=== PATIENT | female | born 1985 | race Caucasian/White ===

== ENCOUNTER 2017-11-02 05:45 | Inpatient (IN) ==
[2017-11-02] MEDS ORDERED: Ringers Solution, Lactated 1,000 ML ONE (06:32)
[2017-11-02] MEDS ORDERED: FLUARIX QUAD 2017-18 36MOS UP/PF 0.5 ML SYRINGE IM ONE (07:00)
[2017-11-02] MEDS ORDERED: Metoclopramide 10 MG/2 ML VIAL IVP PRN (07:07)
[2017-11-02] MEDS ORDERED: Naloxone 0.4 MG/ML INJ IVP PRN (07:07)
[2017-11-02] MEDS ORDERED: Famotidine 20 MG/2 ML VIAL IVP PRN (07:07)
--- NOTE | 2017-11-02 07:14 | OB/GYN History & Physical ---
Date of Encounter: 11/02/17 Time of Encounter: 07:11 History of Present Illness HPI: Ms. Barrera is a 32 year old female Past Med Surg Social Fam HX - Past Medical History Medical history: no medical history Psychiatric history: no psych history - Past Surgical History Surgical History: other - Social History Smoking Status: Never smoker Smokeless Tobacco Status: No Alcohol use: none Drug use: none - Family History Mother Living Status: Still Living Hx Family Cardiac Disorders: Yes (HTN) Hx Family Medical Disorders: Yes (Tremors) Obstetrical History - Pregnancies : 3 Medications and Allergies Ondansetron [Zofran ODT] 4 mg SL Q6HR PRN #5 tab.rapdis 12/28/16 [Rx] Promethazine [Phenergan] 25 mg PO Q6HR PRN #14 tablet 12/28/16 [Rx] Tramadol HCl [Ultram] 50 mg PO QID PRN #14 tab 12/28/16 [Rx] 3 Allergy/AdvReac Type Severity Reaction Status Date / Time Sulfa (Sulfonamide AdvReac Rash Verified 04/03/16 07:48 Antibiotics) Results All other labs normal. - VTE Reasons for not Prescribing Prophylaxis: Treatment not Indicated - Low risk for VTE
--- NOTE | 2017-11-02 07:18 | OB/GYN History & Physical ---
Date of Encounter: 11/03/17 Time of Encounter: 07:15 Assessment and Plan (1) 39 weeks gestation of Current visit: Yes Status: Acute The patient was footling breech which has resolved today by bedside ultrasound and patient is requesting induction of labor (2) History of hemorrhage, currently in third trimester Current visit: Yes Status: Acute The patient is receiving a type and screen, bedside hemorrhage cannot will be in place at time of delivery. CBC pending (3) Hx of pre-eclampsia in prior , currently Current visit: Yes Status: Acute The patient has been normotensive during her visits. She has become hypertensive after admission during this visit. She will receive by mouth labetalol, baseline PIH labs with this visit. Further aggressive management if needed History of Present Illness Chief complaint: Schedule C/S for Breech HPI: Ms. Barrera is a 32 year old female presents for primary section, for double footling breech presentation now vertex by bedside US. History of hemorrhage, polyhydramnios in now resolved. also complicated by short interval, history of preeclampsia and measuring large for gestational age. The last growth ultrasound was on and showed a 6 lbs. 8 oz. fetus at the 73%. Labs: A+, Rubella and Varicella immune, GBS-, all other serologies negative. Past Med Surg Social Fam HX - Past Medical History Attestation: Yes The following information was validated with the patient. Source: patient, old records reviewed Medical history: hypertension, migraine, other Psychiatric history: no psych history - Past Surgical History Surgical History: herniorrhaphy, other - Social History Smoking Status: Never smoker Smokeless Tobacco Status: No Alcohol use: none Drug use: none - Family History Mother Living Status: Still Living Hx Family Cardiac Disorders: Yes (HTN) Hx Family Medical Disorders: Yes (Tremors) Obstetrical History - Pregnancies : 3 Para: 2 Livin Medications and Allergies Ondansetron [Zofran ODT] 4 mg SL Q6HR PRN #5 tab.rapdis 12/28/16 [Rx] Promethazine [Phenergan] 25 mg PO Q6HR PRN #14 tablet 12/28/16 [Rx] Tramadol HCl [Ultram] 50 mg PO QID PRN #14 tab 12/28/16 [Rx] 3 Allergy/AdvReac Type Severity Reaction Status Date / Time Sulfa (Sulfonamide AdvReac Rash Verified 04/03/16 07:48 Antibiotics) Review of System OB All systems PM: reviewed and no additional remarkable complaints except as stated - Constitutional Constitutional ROS IM: headache(s) (Pre-existing prior to ), weight gain - Cardiovascular Cardiovascular: palpitations (With Holter monitor showing sinus tachycardia at times) - Gastrointestinal Gastrointestinal: cramping - Muscloskeletal Musculoskeletal: back pain Musculoskeletal: bilateral: hip pain Exam - Vital Signs Vital signs: Afebrile, vital signs stable. Blood pressure 138/90 - Constitutional Constitutional: well developed, well nourished, no acute distress, average body habitus - HEENT HEENT: Normocephaly, Mucus Membranes Moist - Neck Neck exam: normal inspection, supple - Lungs Respiratory exam: CTAB - Cardiovascular Cardiovascular exam: RRR - Breasts Breast: bilateral: normal (gravid) - Abdomen Abdomen: Present: bowel sounds normal, gravid, non tender - Extremities Extremities exam: normal inspection, warm Deep Tendon Reflex Grade: 3+ Normal But Brisk - Vulva Vulva: bilateral: normal - Vagina Vagina: Present: normal moisture - Cervix Dilation: 3 Effacement: 70 Station: -2 - Anus/Rectum Anus/Rectum: Present: normal perianal skin Results Result Diagrams: 11/02/17 06:58 11/02/17 07:55 All other labs normal. - VTE Reasons for not Prescribing Prophylaxis: Treatment not Indicated - Low risk for VTE
[2017-11-02] MEDS ORDERED: Lidocaine -MPF 2% 5 ML VIAL ONE (07:23)
[2017-11-02] MEDS ORDERED: miSOPROStol 100 MCG TABLET PO PRN (07:35)
--- NOTE | 2017-11-02 07:51 | Anesthesia Evaluation PreOp ---
Date of Encounter: 11/02/17 Time of Encounter: 07:11 - Past History Planned Operation: presents for however ultrasound not breech no Cardiac History: Denies any Significant Hx Pulmonary History: Denies Any Significant HX DINING ROOM MANAGER History: Denies Any Significant HX Other Medical History: Other (previous pre-eclampsia, previous hemorrhages with both deliveries according to family, never recieved blood products.) Anesthesia History: No Prior Anesthetic Complications (previous attemped epidural was unsuccessful at diff facility.) : Yes (term) Alcohol Use: none Drug use: none Medications and Allergies Ondansetron [Zofran ODT] 4 mg SL Q6HR PRN #5 tab.rapdis 12/28/16 [Rx] Promethazine [Phenergan] 25 mg PO Q6HR PRN #14 tablet 12/28/16 [Rx] Tramadol HCl [Ultram] 50 mg PO QID PRN #14 tab 12/28/16 [Rx] 3 Allergy/AdvReac Type Severity Reaction Status Date / Time Sulfa (Sulfonamide AdvReac Rash Verified 04/03/16 07:48 Antibiotics) Anesthesia Exam - HEENT Pupil (Motor): Pupils equal Mallampati: III Teeth: Normal Oral Opening: Greater than 3 - DINING ROOM MANAGER LOC: Oriented DINING ROOM MANAGER Motor: Normal RUE, Normal LUE, Normal RLE, Normal LLE, Normal Face DINING ROOM MANAGER Sensory: Normal: RUE, LUE, RLE, LLE, Face - Cardiac Rhythm: Regular Murmur: None - Pulmonary Breath Sounds: bilateral Clear Respiratory Effort: Symmetrical Anesthesia Assess/Plan ASA Score: 2 (patient to have type and screen and larger bore IV placed.) Modified [place] Scale for Level of Consciousness: Anixous, agitated or restless (patient very anixous) Anesthetic Plan: General, Regional (patient unsure if desires epidural with this del,) Monitoring Plan: Standard Monitors
[2017-11-02 08:10] LABS: Basophils # 0.1 K/mcL (0.0-0.2); Basophils % 0.5 %; Eosinophils # 0.2 K/mcL (0.0-0.6); Eosinophils % 1.4 %; Hematocrit 40.7 % (35.3-44.9); Hemoglobin 13.4 g/dL (11.5-15.4); Immature Granulocytes % 1.4 % (0-4); Lymphocytes # 2.2 K/mcL (0.6-4.6); Lymphocytes % 18.7 %; Mean Corpuscular HGB Conc 32.9 g/dL (31.6-35.5); Mean Corpuscular Volume 81.9 fL (83.0-100.0); Mean Platelet Volume 9.9 fL (9.4-12.4); Monocytes # 1.1 K/mcL (0.0-1.3); Monocytes % 8.9 %; Platelet Count 355 K/mcL (140-400); Red Blood Count 4.97 M/mcL (3.82-4.97); Red Cell Distribution Width 15.7 % (11.5-14.5); Segmented Neutrophils % 69.1 %
[2017-11-02 08:12] LABS: Neutrophils # 8.2 K/mcL (1.6-8.9)
[2017-11-02] MEDS ORDERED: miSOPROStol 100 MCG TABLET PO STA (08:18)
--- NOTE | 2017-11-02 08:20 | OB Labor Progress Note ---
Date of Encounter: 11/02/17 Time of Encounter: 08:18 Labor Progress Note - Subjective Subjective: The patient reports feeling an occasional contraction but they are not stronger uncomfortable. She is reporting a headache and is requesting Tylenol. She denies any current vision or epigastric pain - Vital Signs Vital Signs: Afebrile, blood pressure 172/90 - Cervix Cervix: 3/70/-2, vertex - Heart Tones Heart Tones: 140s baseline, CAT 1 - [place]: Contractions 3-5 minutes after cervical manipulation and Murillo balloon placed - Interventions Interventions: 39 week IUP with spontaneous conversion from breech to vertex. History of preeclampsia and hemorrhage. Transient hypertension - Plan Plan: 60 mL Murillo balloon placed in the patient's consent. By mouth Cytotec 25 g. 100 mg of by mouth labetalol and PIH lab work pending. Induction of labor with anticipation of vaginal delivery
[2017-11-02] MEDS: Acetaminophen 325 MG TABLET PO PRN ×2 (08:26→16:11)
[2017-11-02 08:39] LABS: Alanine Aminotransferase 8 Units/L (0-55); Aspartate Amino Transferase 16 Units/L (5-34); BUN/Creatinine Ratio 12 (6-26); Blood Urea Nitrogen 8 mg/dL (7-20); Lactate Dehydrogenase 202 Units/L (159-327); eGFR For African Americans > 60 (> 60); eGFR For Non-African Americans > 60 (> 60)
--- NOTE | 2017-11-02 10:21 | OB Labor Progress Note ---
Date of Encounter: 11/02/17 Time of Encounter: 10:19 Labor Progress Note - Subjective Subjective: Patient in bed breathing through contractions. Patient waiting on anesthesia for epidural. - Heart Tones Heart Tones: 135 bpm moderate variability +15x15 accels no decels noted. CAt. 1 tracing - Notus Notus: 2-3 min apart - Interventions Interventions: Discussed POC - Plan Plan: Epidural for pain management Continue labor management.
[2017-11-02] MEDS: Ringers Solution, Lactated 1,000 ML IVC SCH ×2 (10:24→12:13)
[2017-11-02] MEDS ORDERED: Epidural Premix (fent/bupiv) 110 ML EP ONE ×2 (10:26→17:56)
[2017-11-02] MEDS ORDERED: EPHEDrine 50 MG/ML VIAL ONE (11:16)
--- NOTE | 2017-11-02 11:38 | Anesthesia Procedures ---
Date of Encounter: 11/02/17 Time of Encounter: 10:33 Procedures: Anesthesia - Epidural/Spinal Patient ID/Chart reviewed: Yes Patient examined: Yes OB Eval: Gestational age: term OB Eval: : 3 OB Eval: Hx Para: 2 OB Eval: Dilated at (cm): 5 OB Eval: Contractions: Non-stressed pattern Consent Obtained: Yes Supplemental Oxygen: None/Room Air Site Prep: Aseptic Technique, Sterile prep and drape, 0.5% Chlorhexidine/Alcohol Patient position: upright Local Anesthetic: Lidocaine 1% Amount of Local Anesthetic used: 2 Touhy Needle Gauge: 18 Touhy Needle Depth (cm): 6 Catheter Depth at Skin (cm): 10 Test Dose (1.5% Lido + Epi): Volume given (mls): 3 Test Dose Result: Negative Loading Dose: Other: 12ml from solution Loading Dose Administered: Thru Catheter Infusion Med: 0.125% Bupivacaine w/ 2 mcg/ml Fentanyl Infusion Rate (mls/hr): [address]: Tegaderm, Tape Interspace Used: L3-L4 Loss of Resistance (EDGARDO): Yes (saline) Blood: No CSF: No Paresthesia: No Procedure: vss though out procedure, FHR stable per RN's
[2017-11-02] MEDS ORDERED: miSOPROStol 100 MCG TABLET PO ONE (12:26)
--- NOTE | 2017-11-02 12:47 | OB Labor Progress Note ---
Date of Encounter: 11/02/17 Time of Encounter: 12:35 Labor Progress Note - Subjective Subjective: Patient is recently status post epidural with hypotension post placement. She has received ephedrine for treatment. She is comfortable with epidural. She is currently having shakes and laying on her left side. I have been called to examine the patient because the CNM was unable to appreciate presenting part on exam - Vital Signs Vital Signs: Afebrile, blood pressure 140/80's - Cervix Cervix: 7/80/-2 vtx - Heart Tones Heart Tones: 140s baseline, CAT 1 - [place]: Contractions every 3 minutes - Interventions Interventions: 39 week IUP for induction of labor. Spontaneous version from footling breech, now vertex. Status post epidural and by mouth Cytotec - Plan Plan: Continue close observation and support. Amniotomy when vertex is well applied. Anticipate vaginal delivery
[2017-11-02] MEDS ORDERED: miSOPROStol 25 MCG TABLET PO ONE (16:07)
--- NOTE | 2017-11-02 17:36 | OB Labor Progress Note ---
Date of Encounter: 11/02/17 Time of Encounter: 17:34 Labor Progress Note - Subjective Subjective: The patient is reporting increasing pelvic pressure and appreciating contractions - Vital Signs Vital Signs: Afebrile, vital signs stable - Cervix Cervix: 7/80/-2, vertex. Presenting part well applied with contraction - Heart Tones Heart Tones: 140s baseline, CAT 1 - [place]: Contractions now 2-4 minutes after second dose of 25 MCG's of oral Cytotec - Interventions Interventions: 39 week IUP for induction of labor with spontaneous presentation vertex from breech - Plan Plan: Amniotomy with small amount of clear fluid. Continue close observation and monitoring
[2017-11-02] MEDS ORDERED: ROPIVACAINE HCL/PF 0.5% 30 ML VIAL ONE (17:56)
[2017-11-02] MEDS ORDERED: Oxytocin 20 units/ LR 1000 mL 20 UNIT/1,000 ML BAG IVC ONE (18:08)
--- NOTE | 2017-11-02 20:42 | OB Labor Progress Note ---
Date of Encounter: 11/02/17 Time of Encounter: 20:40 Labor Progress Note - Subjective Subjective: Patient comfortable after epidural rebolus - Vital Signs Vital Signs: Afebrile, blood pressure 127/88, pulse 86 - Cervix Cervix: 9/80/0, vertex - Heart Tones Heart Tones: 150s baseline, CAT 1 - [place]: Contractions every 4-6 minutes, 25 mcg of Cytotec orally at 1600 - Interventions Interventions: 39 week IUP for induction of labor after spontaneous version from breech to vertex. History of chronic hypertension and preeclampsia - Plan Plan: Continue labetalol 100 mg every 12 hours. Start Pitocin for augmentation. Anticipate vaginal delivery
[2017-11-02] MEDS ORDERED: Oxytocin 20 units/ LR 1000 mL 20 UNIT/1,000 ML BAG IVC SCH (20:45)
[2017-11-02] MEDS ORDERED: D5% in Lactated Ringers 1,000 ML IVC ONE (22:27)
[2017-11-02] MEDS ORDERED: D5% in 0.45% NACL 1,000 ML IVC SCH (22:30)
[2017-11-02] MEDS ORDERED: D5% in 0.45% NACL 1,000 ML IVC ONE (22:32)
--- NOTE | 2017-11-02 22:40 | OB Labor Progress Note ---
Date of Encounter: 11/02/17 Time of Encounter: 22:37 Labor Progress Note - Subjective Subjective: The patient reports being comfortable with her epidural - Vital Signs Vital Signs: Afebrile, vital signs stable - Cervix Cervix: 78/80/-1-0, vertex, no caput - Heart Tones Heart Tones: 140s, CAT2, variables - [place]: Contractions 2-6 minutes, no Pitocin has been started. Cytotec was given at 1600 - Interventions Interventions: 39 week IUP with failure to progress, arrest at 7 cm. Lack of adequate uterine activity. Unable to start Pitocin due to tracing - Plan Plan: IUPC placed. Patient in semi-Fowlers with O2 by facemask. Conversation with patient and about current situation and plan of care. The patient's previous 2 children were born less than 7 pounds. Estimated weight was 6 lbs. 9 oz. at 35 weeks. Will start amnioinfusion. Continue close monitoring. If no cervical change in the next hour despite treatment may consider section.
[2017-11-02] MEDS ORDERED: 0.9 % Sodium Chloride 1,000 ML ONE (22:50)
--- NOTE | 2017-11-03 00:05 | OB Labor Progress Note ---
Date of Encounter: 11/03/17 Time of Encounter: 00:03 Labor Progress Note - Subjective Subjective: Patient is reporting more pressure with contractions. - Vital Signs Vital Signs: Afebrile, blood pressure 127/68, pulse 81 - Cervix Cervix: 8/80/0 - Heart Tones Heart Tones: 140s baseline, variables with contractions but not with every contraction - [employer]: Contractions every 5-6 minutes X 40-50 mmHg since last dose of Cytotec at 1600. - Interventions Interventions: 39 week IUP induction of labor with hypertension, history of preeclampsia on labetalol, history of hemorrhage x2 - Plan Plan: O2 face mask, patient repositioned from high Mendoza's to right lateral with peanut ball. Amnioinfusion and process. Variables stabilizing. Start Pitocin at 1 milliunit. Patient aware of and in agreement with plan of care
[2017-11-03] MEDS ORDERED: Famotidine 20 MG/2 ML VIAL IVP ONE (01:09)
[2017-11-03] MEDS ORDERED: Epidural Premix (fent/bupiv) 110 ML EP ONE (02:16)
[2017-11-03] MEDS ORDERED: *HR* FentaNYL (PF) 100 MCG/2 ML VIAL ONE ×2 (04:33→05:51)
--- NOTE | 2017-11-03 06:21 | Anesthesia Progress Note ---
Date of Encounter: 11/03/17 Time of Encounter: 06:05 Anesthesia Note - Note Note: 11/03/17 06:12 late entry...patient bolus 8ml 0.5% rop plain with 100mcg of fentanyl, bilateral T8 level, c/o midline lower abd pain (hotspot) at 0421. at 0608 called again to BS same spot with severe pain, question progress and other etiologies. withdrawn cath 2 cm and rebolus with 3ml of 0.5% rop and 100mcg fent VSS aseptic dressing change. RN and family at BS. if no relief obtained patient options were to continue current status or redo epidural with all risks at different level in hopes to cover hotspot but no promises. recommendation to continue current status, and not risk further intervention. will monitor
--- NOTE | 2017-11-03 08:11 | OB/GYN Procedure Note ---
Delivery - Delivery Date: 11/03/17 Provider: Demi Quinonez Intrapartum events: none Delivery induction: [place], misoprostol Delivery augmentation: rupture of membranes Delivery monitor: external FHT, external uterine, internal FHT, internal uterine Anesthesia: epidural Estimated Blood Loss: 100 - Repair Episiotomy: none Laceration Description: None - Complications Delivery complications: none Delivery comments: The patient was complete and pushing with epidural anesthesia with a spontaneous vaginal delivery in the JIM position of a vigorous male weighing 7 lbs. 1 oz. with Apgars of 8 at 1 minute and 9 at 5 minutes. was placed on the maternal abdomen. The cord was clamped and cut after pulsations ceased. Cord blood obtained. The placenta was delivered spontaneous and intact. Due to patient's history of hemorrhage she was given 400 mcgs of rectal Cytotec. Uterus was explored and there were no retained products of conception. There were no vaginal or perineal lacerations. Estimated blood loss 100 mL, complications none - Disposition Mom disposition: stable in LDR [place] disposition: stable in LDR
[2017-11-03] MEDS ORDERED: Acetaminophen 325 MG TABLET PO PRN (08:16)
[2017-11-03] MEDS ORDERED: Oxytocin 20 units/ LR 1000 mL 20 UNIT/1,000 ML BAG IVC SCH (08:16)
[2017-11-03] MEDS ORDERED: Measles/Mumps/Rubella Vacc 0.5 ML VIAL SQ PRN (08:16)
[2017-11-03] MEDS ORDERED: Prenatal Vit/FA 1 EACH TABLET PO SCH (09:00)
[2017-11-03] MEDS ORDERED: miSOPROStol 100 MCG TABLET PO SCH (12:00)
[2017-11-03] MEDS: Ibuprofen 600 MG TABLET PO SCH (17:35)
[2017-11-03] MEDS ORDERED: Mag Hydrox/Al Hydrox/Simeth 30 ML UDC PO PRN (21:05)
[2017-11-04 07:32] LABS: Basophils % 0.2 %; Eosinophils # 0.3 K/mcL (0.0-0.6); Eosinophils % 1.9 %; Hematocrit 33.4 % (35.3-44.9); Lymphocytes # 2.2 K/mcL (0.6-4.6); Lymphocytes % 15.6 %; Mean Corpuscular Volume 84.1 fL (83.0-100.0); Mean Platelet Volume 9.6 fL (9.4-12.4); Monocytes # 1.2 K/mcL (0.0-1.3); Monocytes % 8.1 %; Neutrophils # 10.5 K/mcL (1.6-8.9); Platelet Count 257 K/mcL (140-400); Red Blood Count 3.97 M/mcL (3.82-4.97); Red Cell Distribution Width 16.4 % (11.5-14.5); Segmented Neutrophils % 73.2 %
[2017-11-04 07:55] LABS: Hemoglobin 10.7 g/dL (11.5-15.4)
[2017-11-04] MEDS: Ibuprofen 600 MG TABLET PO SCH ×2 (08:44→08:45)
--- NOTE | 2017-11-04 09:45 | Discharge Summary ---
Date of Encounter: 11/04/17 Time of Encounter: 09:41 - Discharge Diagnosis (1) Vaginal delivery Priority: Primary Status: Acute Comments: Patient is a 32 year old female delivered a viable male 11/03/17. Patient states that she is doing well. She states that she has been up ambulating without issue. Has been urinating and passing flatus. Denies having a bowel movement. She has been able to eat without issues. States that she has a great appetite. Patient states that she is having some abdominal cramping, swelling in bilateral legs and feet. Patient also reports a rash on her back that has been itching. Patient states that she plans on breast feeding Ibuprofen and docusate for at home Continue labetalol until seen in the office Hydrocortisone cream for the rash Patient will be discharged home today (2) Anemia, Priority: Secondary Status: Acute Comments: Hgb of 10.7 Continue with ferrous sulfate (3) Breast feeding status of mother Priority: Secondary Status: Acute Comments: Patient plans to breast feed States that she does not need a breast pump. Received a prescription yesterday and her went and picked it up. (4) Rash Priority: Secondary Status: Acute Comments: Patient has a rash on her back. Likely contact dermatitis due to the drape from her spinal anesthetic. Hydrocortisone cream prescription will be given. - Discharge Medications Prescriptions: Ibuprofen [Motrin] 600 mg PO Q6HR #30 tablet Breast Pump [BREAST PUMP] 1 each .ROUTE AD #1 each Docusate [Colace] 100 mg PO BID #60 capsule Ferrous Sulfate 325 mg PO DAILY #30 tablet Hydrocortisone 1% CREAM [Cortaid] 28 appl TP 2-4XD PRN #1 bottle PRN Reason: Itching Labetalol [Trandate] 100 mg PO BID #30 tablet Home Medications: Breast Pump [BREAST PUMP] 1 each .ROUTE AD #1 each 11/03/17 [Rx] Docusate [Colace] 100 mg PO BID #60 capsule 11/04/17 [Rx] Ferrous Sulfate 325 mg PO DAILY #30 tablet 11/04/17 [Rx] Hydrocortisone 1% CREAM [Cortaid] 28 appl TP 2-4XD PRN #1 bottle 11/04/17 [Rx] Ibuprofen [Motrin] 600 mg PO Q6HR #30 tablet 11/04/17 [Rx] Labetalol [Trandate] 100 mg PO BID #30 tablet 11/04/17 [Rx] Vit/FA 1 each PO DAILY tablet 11/04/17 [Rx] Allergies/Adverse Reactions: 3 Allergy/AdvReac Type Severity Reaction Status Date / Time Sulfa (Sulfonamide AdvReac Rash Verified 04/03/16 07:48 Antibiotics) Data Procedures and tests throughout hospitalization: Laboratory Tests 11/02/17 11/02/17 11/02/17 06:58 07:55 07:55 WBC 11.8 H RBC 4.97 Hgb 13.4 Hct 40.7 MCV 81.9 L MCH 27.0 L MCHC 32.9 RDW 15.7 H Plt Count 355 MPV 9.9 Immature Gran % 1.4 Seg Neutrophils % 69.1 Lymphocytes % 18.7 Monocytes % 8.9 Eosinophils % 1.4 Basophils % 0.5 Neutrophils # 8.2 Lymphocytes # 2.2 Monocytes # 1.1 Eosinophils # 0.2 Basophils # 0.1 BUN 8 Creatinine 0.65 Est GFR ( Amer) > 60 Est GFR (Non-Af Amer) > 60 BUN/Creatinine Ratio 12 Uric Acid 6.0 AST 16 ALT 8 Lactate Dehydrogenase 202 Blood Type A POSITIVE Antibody Screen NEGATIVE 11/04/17 07:13 WBC 14.4 H RBC 3.97 Hgb 10.7 L D Hct 33.4 L MCV 84.1 MCH 27.0 L MCHC 32.0 RDW 16.4 H Plt Count 257 MPV 9.6 Immature Gran % 1.0 Seg Neutrophils % 73.2 Lymphocytes % 15.6 Monocytes % 8.1 Eosinophils % 1.9 Basophils % 0.2 Neutrophils # 10.5 H Lymphocytes # 2.2 Monocytes # 1.2 Eosinophils # 0.3 Basophils # 0.0 BUN Creatinine Est GFR ( Amer) Est GFR (Non-Af Amer) BUN/Creatinine Ratio Uric Acid AST ALT Lactate Dehydrogenase Blood Type Antibody Screen Labs on day of discharge: Labs from last 24 hours 11/04/17 07:13 WBC 14.4 H RBC 3.97 Hgb 10.7 L D Hct 33.4 L MCV 84.1 MCH 27.0 L MCHC 32.0 RDW 16.4 H Plt Count 257 MPV 9.6 Immature Gran % 1.0 Seg Neutrophils % 73.2 Lymphocytes % 15.6 Monocytes % 8.1 Eosinophils % 1.9 Basophils % 0.2 Neutrophils # 10.5 H Lymphocytes # 2.2 Monocytes # 1.2 Eosinophils # 0.3 Basophils # 0.0 Date of admission: 11/02/17 05:45 Primary care physician: Moon Alejandra DO Consults: 11/03/17 08:16 Consult to Heel Scorer [CONS] Routine Comment: Vaginal delivery, consult needed Discharging clinician: Lew Culver Anticipated date of discharge: 11/04/17 - Patient Status Disposition: Home, Self-Care Condition: Good Functional capacity at discharge: independent ambulation Overall status at discharge: patient is progressing back to baseline - Discharge Instructions Instructions: Anemia (GEN) Follow Up With: Moon Alejandra DO [Primary Care Provider] - Demi Quinonez MD [Partnered Physician] - - Diet and Activity Activity: increase activity as tolerated Diet: advance to your usual diet Hospital Course Reason for admission: induction of labor Delivery: Episiotomy: none Laceration: none Other procedures: none complications: none Discharge diagnosis: IUP at term delivered [place] baby: male Hospital course: - Delivery Date: 11/03/17 Provider: Demi Quinonez Intrapartum events: none Delivery induction: [place], misoprostol Delivery augmentation: rupture of membranes Delivery monitor: external FHT, external uterine, internal FHT, internal uterine Anesthesia: epidural Estimated Blood Loss: 100 - Repair Episiotomy: none Laceration Description: None - Complications Delivery complications: none Delivery comments: The patient was complete and pushing with epidural anesthesia with a spontaneous vaginal delivery in the JIM position of a vigorous male infant weighing 7 lbs. 1 oz. with Apgars of 8 at 1 minute and 9 at 5 minutes. Infant was placed on the maternal abdomen. The cord was clamped and cut after pulsations ceased. Cord blood obtained. The placenta was delivered spontaneous and intact. Due to patient's history of hemorrhage she was given 400 mcgs of rectal Cytotec. Uterus was explored and there were no retained products of conception. There were no vaginal or perineal lacerations. Estimated blood loss 100 mL, complications none - Disposition Mother is stable and appropriate for discharge Time Attestation: Total time spent providing and/or coordinating discharge services: Time Spent: Less than 30 minutes Exam - Constitutional Vitals: Temp Pulse Resp BP Pulse Ox 97.4 F L 86 16 125/75 97 11/04/17 03:45 11/04/17 03:45 11/04/17 03:45 11/04/17 03:45 11/04/17 03:45 General appearance IM: A&O X 3, no acute distress - Respiratory Respiratory exam: Present: CTAB - Cardiovascular Cardiovascular exam IM: Present: RRR, +S1, +S2 - GI/Abdominal GI/Abdominal exam IM: normal bowel sounds, tenderness (diffuse ) - Uterine Tone: Firm Uterus Position: 2 Fingers Below Umbilicus - Extremities Exam Extremities exam IM: Present: full ROM, normal capillary refill, pedal edema ( swelling in bilateral legs and feet). Absent: calf tenderness - Neurological Exam Neurological exam: alert, normal gait, oriented X3 - Skin Additional comments: Patient has a rash on her mid to lower back that extends to her sides. - Attending Attestation I have seen and evaluated this patient and agree with the POC as outlined by the resident physician.
[2017-11-04 10:44] VITALS: BP 129/82
== END 2017-11-04 13:08 | disposition home or self-care (01) | DRG 774 ==
LOC: 1NENULAB → 1NENUOBS 11-03 10:50
PROVIDERS: ADMIT Obstetrics & Gynecology; ATTEND Obstetrics & Gynecology